=== PATIENT | female | born 1940 | race Caucasian/White ===

== ENCOUNTER → 2016-06-13 | Outpatient (CLI) | payer MEDICARE ==
--- NOTE | 2016-06-13 14:00 | REPMRS ---
Patient History The patient states she has not had a clinical breast exam in over a year. Patient is postmenopausal. Family history of ovarian cancer in mother at age 50 or over and pancreatic cancer in paternal aunt. Digital Woman Screen Mammo: June 13, 2016 - Exam #: [id number] Bilateral CC and MLO view(s) were taken. Technologist: Lakeisha Travis, Technologist Prior study comparison: June 17, 2013, digital woman screen mammo performed at [facility] to [facility]. January 03, 2010, bilateral bilat screen digital mammo performed at [facility] to [facility]. FINDINGS: There are scattered fibroglandular densities. There has been no change in the appearance of the mammogram from the prior studies. There is a mild amount of residual fibroglandular tissue which is fairly symmetric. There is no interval development of dominant mass, architectural distortion, or clustered microcalcification suggestive of malignancy. ASSESSMENT: BI-RADS/ACR category 1 mammogram. Negative. Recommendation Routine screening mammogram in 1 year (for women over age 40). This mammogram was interpreted with the aid of an FDA-approved computer-aided dectection system. Electronically Signed By: Ayaz Rosado MD 06/13/16 [id number]
== END ==
LOC: M WHC 13:11
PROVIDERS: ATTEND Family Medicine
DX: Z12.31 Encounter for screening mammogram for malignant neoplasm of breast (principal)

== ENCOUNTER → 2016-11-12 | Outpatient (REF) | payer MEDICARE ==
[2016-11-12 18:08] LABS: ANION GAP 5 MEQ/L (8-16); BLOOD UREA NITROGEN 18 MG/DL (7-18); CALCIUM LEVEL 9.2 MG/DL (8.8-10.2); CARBON DIOXIDE LEVEL 32 MEQ/L (21-32); CHLORIDE LEVEL 104 MEQ/L (98-107); CREATININE FOR GFR 0.59 MG/DL (0.55-1.02); GLOMERULAR FILTRATION RATE > 60.0 (>39); GLUCOSE, FASTING 87 MG/DL (83-110); POTASSIUM SERUM 4.4 MEQ/L (3.5-5.1); SODIUM LEVEL 141 MEQ/L (136-145)
== END ==
LOC: M SFHCCLAY 13:35
PROVIDERS: ATTEND Family Medicine
DX: I10 Essential (primary) hypertension (principal)
CPT/HCPCS: 80048; G0463

== ENCOUNTER → 2017-03-10 | Outpatient (CLI) | payer MEDICARE ==
--- NOTE | 2017-03-10 16:22 | REP ---
Left wrist two views: There are no comparisons. Mineralization and joint spaces appear normal. I suspect there is soft tissue edema dorsally. This should be confirmed clinically. There are faintly visible calcifications within the area of the triangular cartilage. These could be degenerative or evidence for CPPD. There are tiny calcifications over the dorsum of the carpus of uncertain significance. These could represent a avulsions. Depending on symptomatology consider follow-up MRI or CT.
== END ==
LOC: M CLY 15:08
PROVIDERS: ATTEND Family Medicine
DX: M25.532 Pain in left wrist (principal)

== ENCOUNTER → 2017-12-30 | Outpatient (CLI) | payer MEDICARE | LOC: M WHC 10:31 | DX: Z12.31 Encounter for screening mammogram for malignant neoplasm of breast (principal); Z78.0 Asymptomatic menopausal state; M85.851 Other specified disorders of bone density and structure, right thigh; M85.852 Other specified disorders of bone density and structure, left thigh | CPT/HCPCS: 77067 ==

== ENCOUNTER → 2018-04-05 | Outpatient (REF) | payer MEDICARE | LOC: M SFHCCLAY 15:37 | DX: R30.0 Dysuria (principal) | CPT/HCPCS: 87186 ==

== ENCOUNTER → 2018-05-14 | Outpatient (REF) | payer MEDICARE ==
[2018-05-14 17:23] LABS: ALBUMIN 3.7 GM/DL (3.2-5.2); ALT/SGPT 44 U/L (12-78); BILIRUBIN,TOTAL 0.8 MG/DL (0.2-1.0); BLOOD UREA NITROGEN 13 MG/DL (7-18); CALCIUM LEVEL 8.6 MG/DL (8.8-10.2); CARBON DIOXIDE LEVEL 32 MEQ/L (21-32); CHLORIDE LEVEL 103 MEQ/L (98-107); CHOLESTEROL LEVEL 188 MG/DL (<200); CREATININE FOR GFR 0.59 MG/DL (0.55-1.30); GLOMERULAR FILTRATION RATE > 60.0 (>39); GLUCOSE, FASTING 90 MG/DL (70-100); HDL CHOLESTEROL 78 MG/DL (>40); LDL CHOLESTEROL 96 MG/DL (<100); NON-HDL-C 110 MG/DL; POTASSIUM SERUM 4.2 MEQ/L (3.5-5.1); SODIUM LEVEL 141 MEQ/L (136-145); THYROID STIMULATING HORMONE 0.664 uIU/ML (0.358-3.740); TOTAL PROTEIN 7.3 GM/DL (6.4-8.2); TRIGLYCERIDES LEVEL 72 MG/DL (<150)
== END ==
LOC: M SFHCCLAY 10:02
PROVIDERS: ATTEND Family Medicine
DX: I10 Essential (primary) hypertension (principal)
CPT/HCPCS: 80053; 80061; 84443; G0463

== ENCOUNTER → 2018-05-28 | Outpatient (REF) | payer MEDICARE ==
[2018-05-28 16:27] LABS: TOTAL PROTEIN 7.1 GM/DL (6.4-8.2)
[2018-05-28 16:35] LABS: TOTAL 25(OH) VITAMIN D 22.4 NG/ML (30.0-100.0)
[2018-05-28 16:35] LABS: PTH INTACT 52.2 PG/ML (18.5-88.0)
[2018-06-01 11:13] LABS: ALBUMIN % 55.6 % (55.8-66.1); ALPHA-1-GLOBULIN % 5.9 % (2.9-4.9); ALPHA-2-GLOBULINS % 11.9 % (7.1-11.8); BETA-1-GLOBULINS % 7.6 % (4.7-7.2)
[2018-06-01 11:14] LABS: ALBUMIN 3.95 GM/DL (3.29-5.55); ALPHA-1-GLOBULINS 0.42 GM/DL (0.17-0.41); ALPHA-2-GLOBULINS 0.84 GM/DL (0.42-0.99); BETA-1-GLOBULINS 0.54 GM/DL (0.28-0.60); BETA-2-GLOBULINS 0.46 GM/DL (0.19-0.55); BETA-2-GLOBULINS % 6.5 % (3.2-6.5); GAMMA GLOBULIN % 12.5 % (11.1-18.8); GAMMA GLOBULINS 0.89 GM/DL (0.65-1.58)
== END ==
LOC: M SFHCCLAY 11:09
DX: R74.8 Abnormal levels of other serum enzymes (principal); E83.51 Hypocalcemia
CPT/HCPCS: 84165

== ENCOUNTER → 2018-05-28 | Outpatient (CLI) | payer MEDICARE | LOC: M CLY 11:30 | DX: M16.12 Unilateral primary osteoarthritis, left hip (principal); M25.552 Pain in left hip | CPT/HCPCS: 72190 ==

== ENCOUNTER → 2018-06-23 | Outpatient (CLI) | payer MEDICARE ==
--- NOTE | 2018-06-23 16:35 | REP ---
UNILATERAL RIGHT RIBS, PA CHEST, FIVE VIEWS: HISTORY: Right rib pain. The lungs are clear. The heart is upper limits of normal in size. The pulmonary vasculature is normal in appearance. The bony structure is intact. IMPRESSION: No acute disease.
== END ==
LOC: M CLY 15:37
PROVIDERS: ATTEND Family Medicine
DX: R07.81 Pleurodynia (principal)
CPT/HCPCS: 71101; G0463

== ENCOUNTER → 2018-07-20 | Outpatient (REF) | payer MEDICARE ==
[~2018-07-20] MED LIST: CARV3.12 PO; FURO20TA2 PO; HYDR-3713 PO; MORP-38 PO; MORP30TASA PO; OXYC-517 PO; SERT-138 PO; SPIR-10 PO; VITA400T PO
[2018-07-20 16:39] LABS: BLOOD UREA NITROGEN 14 MG/DL (7-18); CALCIUM LEVEL 9.1 MG/DL (8.8-10.2); CARBON DIOXIDE LEVEL 31 MEQ/L (21-32); CHLORIDE LEVEL 102 MEQ/L (98-107); CREATININE FOR GFR 0.56 MG/DL (0.55-1.30); GLOMERULAR FILTRATION RATE > 60.0 (>39); GLUCOSE, FASTING 95 MG/DL (70-100); HEMATOCRIT 43.4 % (36.0-47.0); HEMOGLOBIN 13.8 g/dl (12.0-15.5); MEAN CORPUSCULAR HEMOGLOBIN 26.8 pg (27.0-33.0); MEAN CORPUSCULAR HGB CONC 31.8 g/dl (32.0-36.5); MEAN CORPUSCULAR VOLUME 84.3 fl (80.0-96.0); PLATELET COUNT, AUTOMATED 394 10^3/uL (150-450); RED BLOOD COUNT 5.15 10^6/uL (4.00-5.40); SODIUM LEVEL 141 MEQ/L (136-145); WHITE BLOOD COUNT 13.9 10^3/uL (4.0-10.0)
== END ==
LOC: M SFHCCLAY 10:25
PROVIDERS: ATTEND Family Medicine
DX: R13.10 Dysphagia, unspecified (principal); R10.33 Periumbilical pain
CPT/HCPCS: 80048; 85027; G0463

== ENCOUNTER → 2018-07-26 | Outpatient (CLI) | payer MEDICARE ==
[~2018-07-26] MED LIST changes: -FURO20TA2 PO; +GASTROGRAFIN SOLUTION 30ML (Q9963) As Ordered ONE; -HYDR-3713 PO; +ISOVUE-370 76% 100ML VIAL (Q9967) As Ordered ONE; -MORP-38 PO; -MORP30TASA PO; -OXYC-517 PO; -SPIR-10 PO
--- NOTE | 2018-07-26 16:23 | REP ---
CT of the abdomen and pelvis with IV and bowel contrast: Comparison is 12/24/2009. The visualized lung napoles are unremarkable except for small focal zones of fibro linear scarring at the inferior tip of the lingula. There are no pleural effusions. There are multiple low density lesions throughout both right and left lobes of the liver compatible with metastases. There is ascites surrounding the liver and spleen extending in the gallbladder fossa, colic there is and pelvis. The gallbladder is unremarkable except for ascites in the gallbladder fossa. The pancreas and spleen are unremarkable. The adrenals, kidneys and abdominal aorta are unremarkable. There is no retroperitoneal adenopathy. There are multiple enlarged mesenteric nodes anteriorly on the left. Pelvis: There is a mass centrally in the pelvis of the uterus measuring up to 4.5 cm, likely related to the cecal tip. There is pelvic ascites. There is no pelvic adenopathy. The uterus and bladder are unremarkable. There is a lytic lesion in the L1 vertebral body compatible with metastasis. Impression: There is a 4.5 cm mass centrally in the pelvis related to the cecal tip. There are multiple low density lesions in the liver compatible with multiple hepatic metastases. There are multiple mesenteric enlarged nodes. There is abdominal and pelvic ascites. There is a lytic lesion in the L1 vertebral body compatible with metastasis. Electronically Signed by Ayaz Oscar MD 07/26/2018 04:15 P
== END ==
LOC: M RAD 14:02
PROVIDERS: ATTEND Family Medicine
DX: R19.00 Intra-abdominal and pelvic swelling, mass and lump, unspecified site (principal); K76.9 Liver disease, unspecified; R10.33 Periumbilical pain; Z80.41 Family history of malignant neoplasm of ovary; Z80.0 Family history of malignant neoplasm of digestive organs

== ENCOUNTER 2018-07-27 16:24 | Inpatient (IN) | payer MEDICARE ==
[~2018-07-27] VITALS: Ht 160 cm; Wt 68.2 kg
[2018-07-27] MEDS ORDERED: NS 1,000 ML IV ONE (17:15)
[2018-07-27] MEDS ORDERED: ONDANSETRON 4 MG ORAL DISINTEGRATING TAB (Q0162 PER 1MG) PO ONE (17:15)
[2018-07-27 17:59] LABS: BASO # 0.2 10^3/uL (0.0-0.2); BASO % 0.8 % (0.0-1.0); EOS # 1.2 10^3/uL (0.0-0.50); EOS % 6.6 % (0.0-3.0); HEMATOCRIT 46.4 % (36.0-47.0); HEMOGLOBIN 15.1 g/dl (12.0-15.5); LYMPH # 1.5 10^3/uL (1.5-4.5); LYMPH % 7.7 % (24.0-44.0); MEAN CORPUSCULAR HEMOGLOBIN 27.6 pg (27.0-33.0); MEAN CORPUSCULAR HGB CONC 32.5 g/dl (32.0-36.5); MEAN CORPUSCULAR VOLUME 84.7 fl (80.0-96.0); NEUTROPHILS # 13.8 10^3/uL (1.8-7.7); NEUTROPHILS % 73.3 % (36.0-66.0); PLATELET COUNT, AUTOMATED 349 10^3/uL (150-450); RED BLOOD COUNT 5.48 10^6/uL (4.00-5.40); WHITE BLOOD COUNT 18.8 10^3/uL (4.0-10.0)
--- NOTE | 2018-07-27 18:25 | REP ---
PA and lateral chest: Comparison is the rib series of 06/23/2018. The lung napoles are clear. The cardiac size is normal. The israel, mediastinum, and skeletal structures are unremarkable. Impression: Negative PA and lateral chest. There is no interval change. Electronically Signed by Ayaz Oscar MD 07/27/2018 06:16 P
[2018-07-27 18:41] LABS: ALBUMIN 2.7 GM/DL (3.2-5.2); ALT/SGPT 76 U/L (12-78); AMYLASE 14 U/L (25-115); BILIRUBIN,TOTAL 5.3 MG/DL (0.2-1.0); BLOOD UREA NITROGEN 15 MG/DL (7-18); CALCIUM LEVEL 8.7 MG/DL (8.8-10.2); CARBON DIOXIDE LEVEL 27 MEQ/L (21-32); CHLORIDE LEVEL 99 MEQ/L (98-107); CPK CREATINE PHOSPHOKINASE 157 U/L (26-192); CREATININE FOR GFR 0.75 MG/DL (0.55-1.30); GLOMERULAR FILTRATION RATE > 60.0 (>39); GLUCOSE, FASTING 88 MG/DL (70-100); LIPASE 45 U/L (73-393); MAGNESIUM LEVEL 2.1 MG/DL (1.8-2.4); MB/CK RELATIVE INDEX 1.27 (< OR =4); POTASSIUM SERUM 5.4 MEQ/L (3.5-5.1); SODIUM LEVEL 135 MEQ/L (136-145); TOTAL PROTEIN 6.8 GM/DL (6.4-8.2); TROPONIN I < 0.02 NG/ML (< 0.10)
[2018-07-27 18:45] LABS: MONO # 2.1 10^3/uL (0.0-0.8)
[2018-07-27 19:59] LABS: INR 1.09; PROTHROMBIN TIME 14.2 SECONDS (12.1-14.4)
[2018-07-27 20:00] LABS: PARTIAL THROMBOPLASTIN TIME 33.8 SECONDS (25.4-37.6)
[2018-07-27] MEDS ORDERED: VITA400T PO (22:20)
[2018-07-27] MEDS ORDERED: CARV3.12 PO (22:20)
[2018-07-27] MEDS ORDERED: SERT-138 PO (22:20)
[2018-07-27 22:43] LABS: APPEARANCE, URINE CLEAR (CLEAR); BACTERIA, URINE AUTO NEGATIVE (NEGATIVE); BILIRUBIN, URINE AUTO 1+ (NEGATIVE); BLOOD, URINE BLOOD NEGATIVE (NEGATIVE); COLOR, URINE AMBER (YELLOW); GLUCOSE, URINE (UA) AUTO NEGATIVE (NEGATIVE); KETONE, URINE AUTO 1+ mg/dL (NEGATIVE); LEUKOCYTE ESTERASE, URINE AUTO NEGATIVE (NEGATIVE); MUCUS, URINE LARGE (NEGATIVE); NITRITE, URINE AUTO NEGATIVE (NEGATIVE); PROTEIN, URINE AUTO 1+ mg/dL (NEGATIVE); RBC, URINE AUTO 2 /HPF (0-3); SPECIFIC GRAVITY URINE AUTO 1.025 (1.002-1.035); SQUAMOUS EPITHELIAL CELL UR AU 1 /HPF (0-6); WBC, URINE AUTO 3 /HPF (0-3)
[2018-07-27] MEDS ORDERED: PERCOCET 5MG/325MG TAB PO PRN (23:00)
[2018-07-27] MEDS ORDERED: METOCLOPRAMIDE 10 MG TAB PO PRN (23:00)
[2018-07-27] MEDS ORDERED: ONDANSETRON 4 MG TAB (S0181) PO PRN (23:00)
[2018-07-27] MEDS ORDERED: ISOVUE-370 76% 100ML VIAL (Q9967) As Ordered ONE (23:17)
--- NOTE | 2018-07-28 00:14 | REPVR ---
EXAM: CT Angiography Chest With Contrast EXAM DATE/TIME: 07/27/2018 11:08 PM CLINICAL HISTORY: 77 years old, female; Pain; Other: HX colon; Patient HX: Colon CA w mets; Additional info: Colon cancer mets TECHNIQUE: Axial computed tomographic angiography images of the chest with intravenous contrast using CT angiography protocol. All CT scans at this facility use at least one of these dose optimization techniques: automated exposure control; mA and/or kV adjustment per patient size (includes targeted exams where dose is matched to clinical indication); or iterative reconstruction. Coronal and sagittal reformatted images were created and reviewed. MIP reconstructed images were created and reviewed. Technologist notes: Facility exam id and description: CT. Angiochest CT angio chest CONTRAST: Contrast Material: 75 ml of iso; Contrast Route: ac COMPARISON: CR Chest, 2 view PA, Lat 07/27/2018 5:41 PM FINDINGS: Pulmonary arteries: No focal pulmonary artery filling defect to suggest acute pulmonary embolus. Aorta: No thoracic aortic aneurysm or dissection. Lungs: Pulmonary vascular/interstitial pattern does not suggest active pulmonary edema. No suspicious lung mass or air space process. No central endobronchial lesion. Pleural space: Minimal dependent bilateral pleural effusions are present. No pneumothorax. Liver: Multiple hepatic lesions consistent with metastases are present. Probable malignant ascites. Lymph nodes: Small, nonspecific mediastinal nodes are present. Bones/joints: Bony structures show no acute fracture or destructive process. IMPRESSION: 1. No evidence of acute pulmonary embolus. 2. Minimal dependent pleural effusions without evidence of mass or pulmonary edema. 3. Extensive hepatic metastases and probable malignant ascites. Unknown source Electronically signed by: Farhan De Leon On 07/28/2018 00:13:54 AM
[2018-07-28] MEDS ORDERED: PATIROMER SORBITEX CALCIUM 8.4 GM POWDER PACKET (VELTASSA) PO ONE (00:15)
--- NOTE | 2018-07-28 00:21 | HPEPDOC ---
[facility] Medical History & Physical Date of Admission Jul 27, 2018 Primary Care Physician: Leon Babcock MD Attending Physician: KERRI MARSHALL MD History and Physical CHIEF COMPLAINT: [place], vomiting HISTORY OF PRESENT ILLNESS: Patient is a 77-year-old female presented for nausea, vomiting, diarrhea. Her story begins approximately last April when patient developed abdominal pain, that has been progressively worsening. . She later developed fatigue, and weakness following [place]. This was then p roceeded by decreased appetite, from a sensation of fullness. She was able to manage her abdominal pain with pain medication, however she was unable to relieve complete remission from her pain. She then stated that she noticed constipation, with occasional red stool, along with dark urination. She denied any weight loss, denied any fever, admitted to abdominal pain, admitted to night sweats. Her PCP ordered CT abdomen on 07/26/2018. , However prior being official read. Patient called PCPs office complaining of ongoing diarrhea, as well as not doing well, with decreased by mouth intake. Patient was advised to come to emergency room for further evaluation. On her initial evaluation, Patient complain of nausea, abdominal pain, and ongoing diarrhea. Her CT scan was available during initial evaluation. Patient was made aware of CT results indicating cecal tumor with metastases to liver and bone. Hospitalist team was called for admission due to new diagnosis of cecal tumor with metastases to bone and liver. Surgery was also consulted. Record review indicated the patient had a colonoscopy performed on Thursday, February 19 in 2015. Impression showed nonbleeding internal hemorrhoid, with diverticulosis in the rectosigmoid colon. One small polyp in the mid ascending colon was removed. Pathology of the polyp showed tubular adenoma dated on 02/21/2016. Prior colonoscopies showed colon polyps at the hepatic flexures, with a biopsy showing 2 fragments of tubular adenoma. Dated on 02/27/2019. Patient stated that she recently had a colonoscopy, approximately 8 months ago. Was unable to find records for this colonoscopy. All of her other colonoscopies performed by Dr. Quezada PAST MEDICAL HISTORY: Menopause Hemorrhoids. Depression GERD Hypertension Osteoporosis. PAST SURGICAL HISTORY: D&C 3 SOCIAL HISTORY: , lives at home with , former smoker, quit in 1983. FAMILY HISTORY: Noncontributory ALLERGIES: Please see below. ROS CONSTITUTIONAL: No fevers, admits to chills, denies weight loss,admits to lethargy HEENT: No rhinorrhea, no itchy eyes, no congesion, CARDIOVASCULAR: No murmurs no palpitations and arrhythmias RESPIRATORY: Not cough, No SOB, no issues to report GASTROINTESTINAL: Positive for nausea, positive vomiting, positive for diarrhea, positive for decreased appetite, positive for red stool HEMATOLOGICAL: No bleeding GENITOURINARY:No Issues HEMATOLOGIC/LYMPHATIC: No swelling PE VITALS: See Below GENERAL APPEARANCE: Alert no acute distress. SKIN: Warm, well perfused. ENT: Palate intact, no JVD LUNGS: Clear to auscultation bilaterally. HEART: Normal S1, S2. No murmurs, no rubs, no gallops ABDOMEN: Soft. No masses. Bowel sounds are present. Right upper quadrant tenderness, no organomegaly TRUNK/SPINE:Straight. EXTREMITIES: Moves all extremities equally. No gross deformities. PULSES: 2+ upper and lower extremity . HOME MEDICATIONS: Please see below. LABORATORY DATA: See below. IMAGING: CT abdomen: The visualized lung napoles are unremarkable except for small focal zones of fibro linear scarring at the inferior tip of the lingula. There are no pleural effusions. There are multiple low density lesions throughout both right and left lobes of the liver compatible with metastases. There is ascites surrounding the liver and spleen extending in the gallbladder fossa, colic there is and pelvis. The gallbladder is unremarkable except for ascites in the gallbladder fossa. The pancreas and spleen are unremarkable. The adrenals, kidneys and abdominal aorta are unremarkable. There is no retroperitoneal adenopathy. There are multiple enlarged mesenteric nodes anteriorly on the left. Pelvis: There is a mass centrally in the pelvis of the uterus measuring up to 4.5 cm, likely related to the cecal tip. There is pelvic ascites. There is no pelvic adenopathy. The uterus and bladder are unremarkable. There is a lytic lesion in the L1 vertebral body compatible with metastasis. Impression: There is a 4.5 cm mass centrally in the pelvis related to the cecal tip. There are multiple low density lesions in the liver compatible with multiple hepatic metastases. There are multiple mesenteric enlarged nodes. There is abdominal and pelvic ascites. There is a lytic lesion in the L1 vertebral body compatible with metastasis. chest xray: Negative PA and lateral chest. There is no interval change. MICROBIOLOGY: Please see below. ASSESSMENT: A 77-year-old female presenting with nausea, vomiting, diarrhea. CT is positive for cecal mass, with metastasis to liver and bone. PLAN: 1. Nausea, vomiting, and diarrhea secondary to cecal mass, secondary to colon cancer, secondary to liver metastases, -CT abdomen and pelvis see above -Zofran for nausea -IV fluids for decreased by mouth intake -CEA pending -CT of chest ordered (staging) -GI panel negative -Surgery consulted, Dr. Ramon will evaluate patient tomorrow morning - Consider GI consult in a.m. - Consider consult to oncology in the a.m. Leukocytosis, 2/2 reactive, unlikely to be infection -Chest x-ray negative, urine negative, -GI panel negative -Blood cultures pending -Elevated C-reactive protein -Continue to monitor Elevated liver function exam secondary to liver metastasis -See above for plan Lactic acidosis secondary to cecal mass, 2/2 vomiting, 2/2 diarrhea -Will continue monitoring Hyperkalemia secondary to nausea and vomiting, -Hospital no longer has Kayexalate, ordered [place] Hyponatremia and nausea and vomiting -Replacement fluid ordered Depression. -Continue home med Hypertension. -Continue home medication Osteoporosis -Continue home medication DVT -Heparin Vital Signs Vital Signs Date Time Temp Pulse Resp B/P (MAP) Pulse Ox O2 Delivery O2 Flow Rate FiO2 07/27/18 20:45 69 16 100/57 (71) 96 Room Air 07/27/18 16:57 97.7 Laboratory Data Labs 24H Laboratory Tests 2 07/27/18 17:35: Immature Granulocyte % (Auto) 0.6, White Blood Count 18.8H, Red Blood Count 5.48H, Hemoglobin 15.1, Hematocrit 46.4, Mean Corpuscular Volume 84.7, Mean Corpuscular Hemoglobin 27.6, Mean Corpuscular Hemoglobin Concent 32.5, Red Cell Distribution Width 14.8H, Platelet Count 349, Neutrophils (%) (Auto) 73.3H, Lymphocytes (%) (Auto) 7.7L, Monocytes (%) (Auto) 11.0H, Eosinophils (%) (Auto) 6.6H, Basophils (%) (Auto) 0.8, Neutrophils # (Auto) 13.8H, Lymphocytes # (Auto) 1.5, Monocytes # (Auto) 2.1H, Eosinophils # (Auto) 1.2H, Basophils # (Auto) 0.2, Nucleated Red Blood Cells % (auto) 0.0, Anion Gap 9, Glomerular Filtration Rate > 60.0, Lactic Acid Level 2.2*H, Blood Urea Nitrogen 15, Creatinine 0.75, Sodium Level 135L, Potassium Level 5.4H, Chloride Level 99, Carbon Dioxide Level 27, Calcium Level 8.7L, Aspartate Amino Transf (AST/SGOT) 150H, Alanine Aminotransferase (ALT/SGPT) 76, Total Creatine Kinase 157, Alkaline Phosphatase 952H, Total Bilirubin 5.3H, Total Protein 6.8, Albumin 2.7L, Magnesium Level 2.1, Creatine Kinase MB 2.0, Creatine Kinase MB Relative Index 1.27, Troponin I < 0.02, C-Reactive Protein, Quantitative 15.40H, GJ-Wzg-[id number]-Type Natriuretic Peptide 210, Albumin/Globulin Ratio 0.66L, Amylase Level 14L, Lipase 45L 07/27/18 19:24: Prothrombin Time 14.2, Prothromb Time International Ratio 1.09, Activated Partial Thromboplast Time 33.8, Ammonia < 10 CBC/BMP Laboratory Tests 07/27/18 17:35 Red Blood Count 5.48 H, Mean Corpuscular Volume 84.7, Mean Corpuscular Hemoglobin 27.6, Mean Corpuscular Hemoglobin Concent 32.5, Red Cell Distribution Width 14.8 H, Neutrophils (%) (Auto) 73.3 H, Lymphocytes (%) (Auto) 7.7 L, Monocytes (%) (Auto) 11.0 H, Eosinophils (%) (Auto) 6.6 H, Basophils (%) (Auto) 0.8, Neutrophils # (Auto) 13.8 H, Lymphocytes # (Auto) 1.5, Monocytes # (Auto) 2.1 H, Eosinophils # (Auto) 1.2 H, Basophils # (Auto) 0.2, Calcium Level 8.7 L, Aspartate Amino Transf (AST/SGOT) 150 H, Alanine Aminotransferase (ALT/SGPT) 76, Total Creatine Kinase 157, Alkaline Phosphatase 952 H, Total Bilirubin 5.3 H, Total Protein 6.8, Albumin 2.7 L Microbiology Microbiology 07/27/18 Blood Culture, Received Pending 07/27/18 Blood Culture, Received Pending 07/27/18 Gastrointestinal Tract Panel (PCR) - Final, Complete Home Medications Scheduled Carvedilol (Carvedilol) 3.125 Mg Tab, 3.125 MG PO BID Cholecalciferol (Vitamin D3) 400 Unit Tab, 400 UNIT PO TID Sertraline HCl (Sertraline HCl) 100 Mg Tab, 100 MG PO DAILY Allergies Coded Allergies: Quinolones (Unverified Allergy, Unknown, UNKNOWN, 09/12/12) Rofecoxib (Unverified Adverse Reaction, Mild, FLUID RETENSION, 07/27/18) GME ATTESTATION GME ATTESTATION My faculty preceptor for this patient encounter was physically present during the encounter and was fully available. All aspects of the patient interview, examination, medical decision making process, and medical care plan development were reviewed and approved by the faculty preceptor. The faculty preceptor is aware and concurs with the plan as stated in the body of this note and will attest to such by his/her cosignature. RM RUFFIN DO Jul 27, 2018 22:11
[2018-07-28 01:00] VITALS: BP 136/97
[2018-07-28] MEDS: NS 1,000 ML IV SCH ×2 (01:30→12:37)
[2018-07-28] MEDS: HEPARIN SOD (PORCINE) 5000 UNITS/ML VIAL SC SCH ×3 (05:37→21:23)
[2018-07-28 06:00] VITALS: BP 116/63
[2018-07-28 06:30] LABS: HEMATOCRIT 36.4 % (36.0-47.0); MEAN CORPUSCULAR HEMOGLOBIN 27.4 pg (27.0-33.0); MEAN CORPUSCULAR VOLUME 83.1 fl (80.0-96.0); PLATELET COUNT, AUTOMATED 291 10^3/uL (150-450); RED BLOOD COUNT 4.38 10^6/uL (4.00-5.40); WHITE BLOOD COUNT 16.3 10^3/uL (4.0-10.0)
--- NOTE | 2018-07-28 06:41 | ECGEPIP ---
Stationary ECG Study [facility] - ED Test Date: 2018-07-27 Pat Name: SONIDO AMANDA Department: Room: - Gender: F Data Management Engineer: willam : 1940 Requested By: LINDA Orellana PA-C Order Number: [id number] Reading MD: Lucho Pruett Measurements Intervals [place] Rate: 68 P: 69 AK: 140 QRS: -63 QRSD: 140 T: -5 QT: 450 QTc: 481 Interpretive Statements SINUS RHYTHM RIGHT BUNDLE BRANCH BLOCK LEFT ANTERIOR FASCICULAR BLOCK NSTTW ABNORMALITIES NO PRIORS FOR COMPARISON Electronically Signed On 07-28-2018 6:40:45 EST by Lucho Pruett
[2018-07-28] MEDS: SERTRALINE 100 MG TAB PO SCH (09:05)
[2018-07-28] MEDS: CARVedilol 3.125 MG TAB PO SCH ×2 (09:05→21:22)
[2018-07-28] MEDS: PANTOPRAZOLE 40MG TAB (PROTONIX) PO SCH (09:05)
[2018-07-28] MEDS: VITAMIN D (CHOLECALCIFEROL) 400 INTERNATIONAL UNITS TAB PO SCH ×3 (09:05→21:22)
[2018-07-28 13:01] LABS: ALBUMIN 2.2 GM/DL (3.2-5.2); ALT/SGPT 56 U/L (12-78); BILIRUBIN,TOTAL 5.5 MG/DL (0.2-1.0); BLOOD UREA NITROGEN 14 MG/DL (7-18); CARBON DIOXIDE LEVEL 28 MEQ/L (21-32); CHLORIDE LEVEL 102 MEQ/L (98-107); CREATININE FOR GFR 0.58 MG/DL (0.55-1.30); GLOMERULAR FILTRATION RATE > 60.0 (>39); GLUCOSE, FASTING 96 MG/DL (70-100); POTASSIUM SERUM 4.2 MEQ/L (3.5-5.1); SODIUM LEVEL 137 MEQ/L (136-145); TOTAL PROTEIN 5.1 GM/DL (6.4-8.2)
[2018-07-28] MEDS: ACETAMINOPHEN TAB 650MG DOSE (2X325MG) PO PRN (13:41)
[2018-07-28 14:00] VITALS: BP 108/55
[2018-07-28] MEDS ORDERED: LIDOCAINE 1% MDV 20ML VIAL As Ordered ONE (16:18)
--- NOTE | 2018-07-28 17:20 | CR ---
DATE OF CONSULTATION: 07/28/2018 REASON FOR CONSULTATION: Possible colon cancer. HISTORY OF PRESENT ILLNESS: The patient is a 77-year-old female who presents with nausea, vomiting, and diarrhea that has been progressively worse for the past 3 days. She has had intermittent nausea, vomiting, and abdominal pains going on since last April. She has been followed outpatient by her primary for that. Had an outpatient CT ordered for July 26; however, due to her persistent diarrhea for the last 3 days, she could not wait for the results, and she came into emergency room last evening for evaluation. In the emergency room (ER), they reviewed her images and found out that she has significant disease throughout the entire abdomen concerning for possible metastatic colon cancer; therefore, she has been admitted basically for this along with her dehydration and intractable nausea and vomiting. She says that these symptoms have been going on since last April. They have just been getting progressively worse. Since May around Chrstimastime, she has been very weak and tired and has had a poor appetite. She denies any weight loss or fevers but was concerned because she has not been eating much, either. She has had a previous colonoscopy in [place] [address] Quezada, a couple polyps removed, but the rest of her exam was essentially normal. No complications from that. No other problems with abdominal pains in the past. PAST MEDICAL HISTORY 1. Menopause. 2. Hemorrhoids. 3. Depression. 4. Gastroesophageal reflux disease (GERD). 5. Hypertension. 6. Osteoporosis. PAST SURGICAL HISTORY: Dilatation and curettage (D and C) times three. SOCIAL HISTORY: Denies drug, alcohol, tobacco abuse. FAMILY HISTORY: Noncontributory. ALLERGIES: QUINOLONES and ROFECOXIB. HOME MEDICATIONS: Please see medication reconciliation. REVIEW OF SYSTEMS: Pertinent positives and negatives as stated in history of present illness (HPI). PHYSICAL EXAMINATION: GENERAL. Alert and oriented times three. No acute distress. VITAL SIGNS: Temperature 96.9, pulse 58, respirations 19, blood pressure 116/63, pulse oximetry 99% on room air. HEENT: Pupils equally round and react to light and accommodation. HEART: S1, S2, regular rate and rhythm. LUNGS: Clear auscultation bilaterally. ABDOMEN: Soft, distended, nontender. Bowel sounds positive. No signs of any ventral hernias. EXTREMITIES: No clubbing, cyanosis, or edema. LABORATORY DATA: White count 16.3, hemoglobin 12, platelets 291. Potassium 4.2, lactic acid 2.2 with a repeat down to 1.3 after some hydration, creatinine 0.58. CEA is pending. IMAGING STUDIES: CT that she had completed on July 26 shows to a 4.5 cm mass in the pelvis related to the cecal tip, multiple low-density lesions in the liver multiple, compatible with multiple hepatic metastases with multiple mesenteric enlarged nodes. There is abdominal and pelvic ascites. There is also a lytic lesion on the L1 vertebral body, compatible with metastasis. ASSESSMENT AND PLAN: Patient is a 77-year-old female with extensive intra-abdominal disease from likely malignant lesion arising from the colon or the appendix. Seeing that she had a normal colonoscopy in 2016, it is possible that this is a lesion arising from the appendix itself. At this point, she is has a soft abdomen that is distended. There is ascites. There are mesenteric lesions in addition to hepatic lesions and colon lesions concerning for metastatic disease. I have consulted oncology. I have attempted to call them and text them and have been unable to speak with them in person, but the consult was placed. I have also spoken with radiology, who is gong to attempt to get a biopsy of one of the omental lesions inside of her abdomen for a tissue diagnosis. Once that is completed, will leave that up to oncology for the next step. She will likely need some neoadjuvant therapy at this point. I do not feel that she is a surgical candidate, especially with the concern for possible carcinomatosis and frozen abdomen. Unless she has issues with bleeding or obstruction, then we will avoid a surgical intervention until neoadjuvant care has been completed for a couple months. Thank you for the consult. I will continue to follow the patient with you.
[2018-07-28 17:45] VITALS: BP 136/67
--- NOTE | 2018-07-28 19:27 | REP ---
LIMITED ABDOMINAL ULTRASOUND: 07/28/2018. Clinical history: An ultrasound for potential pre biopsy scan under ultrasound guidance. Multiple mesenteric masses. Comparison CT abdomen 07/26/2018. Findings: Sonographic evaluation shows some hypoechoic solid appearing lesions but it is difficult to confirm that they are the precise masses seen by CT. Two adjacent 2.5 and 2 cm. They cannot conform to expectations for location or size of the lesion compared to CT [address] will be used as a modality for biopsy. Electronically Signed by Alberto Walter MD 07/28/2018 09:30 P
--- NOTE | 2018-07-28 21:18 | REP ---
CT-GUIDED ABDOMINAL WALL MASS BIOPSY The procedure was performed under the direct supervision of Dr. Walter. Patient has a history of multiple mesenteric nodes anteriorly on the left seen on a previous CT scan dated 07/26/2018. The node measuring 3 x 2.6 cm dense the left anterior abdominal wall was selected for biopsy. The risks and benefits of the procedure were explained to the patient and informed consent was obtained. The abdominal wall mass was localized using CT guidance. The skin was prepped and draped in a sterile fashion. 1% lidocaine was used as a local anesthetic. Using CT guidance a 17/18 gauge coaxial needle biopsy system was inserted and advanced into the mass. Six core biopsy samples were obtained and sent to lab. The patient tolerated the procedure well and there were no immediate complications. After the appropriate amount of monitored convalescence the patient was discharged from the department. Reviewed by ELMER Garcia 07/28/2018 05:24 P Electronically Signed by Alberto Walter MD 07/28/2018 09:09 P
[2018-07-28 22:00] VITALS: BP 135/66
[2018-07-29] MEDS: NS 1,000 ML IV SCH ×2 (01:35→15:08)
[2018-07-29] MEDS ORDERED: PINK BISMUTH SUSP 524MG/30ML ORAL SYRINGE PO PRN (02:00)
--- NOTE | 2018-07-29 02:11 | IPNPDOC ---
Subjective Date Seen The patient was seen on 07/28/18. Subjective Chief Complaint/HPI Patient and her family were anxious to discuss diagnosis and prognosis. Of her GI symptoms, diarrhea is the worst, sometimes limiting what she will eat for fear of future diarrhea. Constitutional: Reports: Malaise, Night Sweats, Weakness, Fatigue; Denies: Chills, Fever, Weight Loss Skin: Denies: Rash Pulmonary: Reports: Dyspnea; Denies: Cough Gastrointestinal: Reports: Nausea, Vomiting, Diarrhea Objective Physical Examination General Exam: Positive: Alert, Cooperative Eye Exam: Positive: Conjunctiva & lids normal ENT Exam: Positive: Atraumatic, Mucous membr. moist/pink Chest Exam: Positive: Clear to auscultation, Normal air movement Heart Exam: Positive: Rate Normal Abdomen Exam: Positive: BS Hypoactive Assessment /Plan Problems (1) Colonic mass Status: Acute Problem Text: Discussed current plan. Biopsies performed today. Will ultimately require PET scan. Prognosis will be more clear once biopsies return and presumed malignancy is staged. Discussed lumbar and hepatic lesions appear to be metastases on CT, but can be better evaluated with PET. (2) Chronic depression Problem Text: continue home medication (3) Hypertension Problem Text: Continue carvedilol, home Lasix on hold. (4) Gastrointestinal distress Problem Text: Added Pepto to current symptomatic control. Encouraged her to continue eating, as nausea and vomiting are not as bothersome for her, and she seems to have diarrhea no matter what she eats or drinks. Plan/VTE VTE Prophylaxis Ordered?: Yes VS, I&O, 24H, Fishbone Vital Signs/I&O Vital Signs Date Time Temp Pulse Resp B/P (MAP) Pulse Ox O2 Delivery O2 Flow Rate FiO2 07/28/18 22:00 98.1 68 19 135/66 (89) 95 07/28/18 00:52 Room Air I&O- Last 24 Hours up to 6 AM 07/29/18 06:00 Intake Total 1620 ml Output Total 1000 ml Balance 620 ml Laboratory Data 24H LABS Laboratory Tests 2 07/28/18 06:06: Nucleated Red Blood Cells % (auto) 0.0, Anion Gap 7L, Glomerular Filtration Rate > 60.0, Lactic Acid Followup at 4 Hours 1.3, Blood Urea Nitrogen 14, Creatinine 0.58, Sodium Level 137, Potassium Level 4.2#, Chloride Level 102, Carbon Dioxide Level 28, Calcium Level 8.0L, Aspartate Amino Transf (AST/SGOT) 102H, Alanine Aminotransferase (ALT/SGPT) 56, Alkaline Phosphatase 692H, Total Bilirubin 5.5H, Total Protein 5.1#L, Albumin 2.2L, Albumin/Globulin Ratio 0.76L CBC/BMP Laboratory Tests 07/28/18 06:06 Red Blood Count 4.38, Mean Corpuscular Volume 83.1, Mean Corpuscular Hemoglobin 27.4, Mean Corpuscular Hemoglobin Concent 33.0, Red Cell Distribution Width 14.6 H, Calcium Level 8.0 L, Aspartate Amino Transf (AST/SGOT) 102 H, Alanine Aminotransferase (ALT/SGPT) 56, Alkaline Phosphatase 692 H, Total Bilirubin 5.5 H, Total Protein 5.1 #L, Albumin 2.2 L Microbiology Microbiology 07/27/18 Blood Culture - Preliminary, Resulted No growth after 24 hours . All specim... 07/27/18 Blood Culture - Preliminary, Resulted No growth after 24 hours . All specim... 07/27/18 Gastrointestinal Tract Panel (PCR) - Final, Complete CALLY MOSS DO Jul 29, 2018 02:11
[2018-07-29] MEDS: HEPARIN SOD (PORCINE) 5000 UNITS/ML VIAL SC SCH ×3 (05:47→20:52)
[2018-07-29 06:00] VITALS: BP 151/72
[2018-07-29 09:15] VITALS: BP 110/68
[2018-07-29] MEDS: SERTRALINE 100 MG TAB PO SCH (10:22)
[2018-07-29] MEDS: PANTOPRAZOLE 40MG TAB (PROTONIX) PO SCH (10:22)
[2018-07-29] MEDS: CARVedilol 3.125 MG TAB PO SCH ×2 (10:23→20:53)
[2018-07-29] MEDS: VITAMIN D (CHOLECALCIFEROL) 400 INTERNATIONAL UNITS TAB PO SCH ×3 (10:23→20:51)
[2018-07-29 14:00] VITALS: BP 116/62
[2018-07-29 18:35] LABS: HEMATOCRIT 39.7 % (36.0-47.0); MEAN CORPUSCULAR HEMOGLOBIN 27.3 pg (27.0-33.0); MEAN CORPUSCULAR HGB CONC 32.7 g/dl (32.0-36.5); MEAN CORPUSCULAR VOLUME 83.2 fl (80.0-96.0); PLATELET COUNT, AUTOMATED 344 10^3/uL (150-450); RED BLOOD COUNT 4.77 10^6/uL (4.00-5.40); WHITE BLOOD COUNT 16.8 10^3/uL (4.0-10.0)
[2018-07-29 18:54] LABS: ALBUMIN 2.1 GM/DL (3.2-5.2); ALT/SGPT 63 U/L (12-78); BILIRUBIN,TOTAL 4.9 MG/DL (0.2-1.0); BLOOD UREA NITROGEN 13 MG/DL (7-18); CALCIUM LEVEL 7.8 MG/DL (8.8-10.2); CARBON DIOXIDE LEVEL 27 MEQ/L (21-32); CHLORIDE LEVEL 108 MEQ/L (98-107); CREATININE FOR GFR 0.52 MG/DL (0.55-1.30); GLOMERULAR FILTRATION RATE > 60.0 (>39); GLUCOSE, FASTING 131 MG/DL (70-100); POTASSIUM SERUM 3.5 MEQ/L (3.5-5.1); SODIUM LEVEL 143 MEQ/L (136-145); TOTAL PROTEIN 5.1 GM/DL (6.4-8.2)
--- NOTE | 2018-07-29 20:26 | CR ---
DATE OF CONSULTATION: 07/29/2018 REASON FOR CONSULTATION: Metastatic colon carcinoma. HISTORY OF PRESENT ILLNESS: This is a very pleasant 77-year-old white female who relates that over the past few months, beginning in the fall of 2017, that she began to notice that she was having an increasing abdominal girth. The clothing that she had been used to wear on a regular basis. She found that her pants were getting tight. She had thought that he was perhaps that she was gaining some weight and did not think too much about it until she was developing progressive nausea and vomiting and abdominal pain that had crescendo over the past 3 days prior to admission. She had been seen by her primary care physician who had ordered an outpatient CT scan. However, due to her diarrhea, the patient was not able to go to the doctor's office for followup and came to the emergency room last evening. In the emergency room, the patient was found to have significant disease throughout her entire liver concerning for possible metastatic colon carcinoma. She was treated for her dehydration and intractable nausea and vomiting. The patient had a known past medical history of having a colonoscopy in February 2016 and she shows had few colon polyps but the rest of her examination was normal. She has had a biopsy and those results are currently pending. The patient's past medical history is 3, para 3, history of hemorrhoids, depression, gastroesophageal reflux disease, hypertension, osteoporosis. Her past surgical history includes a D C x3. SOCIAL HISTORY: She denies any drugs, alcohol, tobacco abuse. She is . Her is supportive. Two of her daughters live locally and her son lives in [place]. Her past family history is noncontributory for any malignancies. Her allergies are to ROFECOXIB, as well as QUINOLONES. Her current medications include carvedilol 3.125 mg by mouth twice a day, vitamin D3 400 units by mouth three times a day and sertraline hydrochlorothiazide 100 mg by mouth daily. On her review of systems, she relates that she had noticed that she had gotten a sallow complexion, nausea, vomiting, diarrhea and no signs of any hematemesis or melanoma associated with this as well. She relates bloating, distension and passage of gas as well. She does not relate any known particular weight loss but has had a decrease in her appetite. She has had no chest pain to no shortness of breath. No hematuria or dysuria. No numbness or tingling of the fingertips and toes and no swelling of the lower extremities. The remainder of her 12-point review of systems is otherwise negative On her physical examination, her temperature is 97.9. Her pulse is 62, respiratory rate is 20, blood pressure (BP) is 116/62 and pulse oximetry is 94. Her HEENT is normocephalic, atraumatic. Her sclerae is muddy but nonicteric. Oropharynx is otherwise clear. Her neck is supple with no adenopathy. Chest has decreased breath sounds at the bases. Cardiovascular: S1-S2 appreciated with no murmurs. Her abdomen is otherwise soft; however, she has some abdominal fullness, tender on deep palpation. Palpable masses are felt. She has marked hepatomegaly. Liver extends over the midline and onto the left costal margin. Her extremities show no cyanosis, no clubbing or any edema. On her laboratories, her white blood cell (WBC) count is 18.8. Her hemoglobin is 15/46. Her red cell distribution width (RDW) is 14.8, platelets of 349, neutrophils of 73, lymphocytes of 7.7. On her chemistries, she has a sodium of 137, potassium 4.2, chloride 102, CO2 28, BUN of 14, creatinine 0.58, fasting glucose of 96, calcium of 8, total bilirubin of 5.5, AST of 102, ALT of 56, alkaline phosphatase of 692, total protein is 5.1, albumin is 2.2 and on the total bilirubin again is 5.5. On the patient's imaging studies, she has a CT scan of the abdomen and pelvis that was reviewed both the films, as well as the report were reviewed with the patient, her , her daughter and her [id number], her daughter, Nahum. The CT scan of the abdomen shows multiple low densities throughout both the right and left lobes of the liver compatible with metastatic disease. There is ascites surrounding the liver and spleen extending into the gallbladder fossa. There gallbladder is unremarkable. The pancreas and spleen are unremarkable. The adrenals, kidneys and abdominal aorta are unremarkable. There is no retroperitoneal adenopathy. There are multiple enlarged mesenteric lymph nodes anteriorly on the left. In the pelvis, there is a mass centrally in the pelvis by the uterus 4.5 cm, likely related to the cecal tip. There is pelvic ascites. There is no pelvic adenopathy. The uterus and bladder are unremarkable. There is a lytic lesion in the L1 vertebral body compatible with metastatic disease. The lungs were reviewed as part of the CT scan of the abdomen and there was no evidence of any disease there as well. The patient had a biopsy done, a CT-guided abdominal wall mass done on 07/28/2018 and six core biopsy specimens were sent to the laboratory. IMPRESSION: Likely metastatic colon carcinoma stage IV disease with massive disease. The bulk of disease in the liver with ascites, as well as with osseous metastasis at L1. PLAN: I have had a discussion with the patient and her . I spent more than 40 minutes in addition to the physical examination with the patient going over her films, her diagnosis, her disease and as well as her stage. The patient has a bilirubin of 5.5, which will make any delivery of chemotherapy requiring dose adjustments to avoid hepatic toxicity. I have also advised the patient that if they would like to seek a second opinion, [facility] or [place] that this certainly is their option and that we would for with whenever center she went to. My concern is that her disease is grossly metastatic with increased alkaline phosphatase increased, bilirubin and a performance status that is currently questionable which is at least a 2/4 on the ECOG scale currently. Plan is to have the patient discharged to home, have discussions with her family; and if she is able and her performance status is adequate, to consider FOLFOX chemotherapy plus or minus Avastin and/or immunotherapy pending her molecular profile. Thank you for your confidence in this consultation.
[2018-07-29] MEDS: ACETAMINOPHEN TAB 650MG DOSE (2X325MG) PO PRN (20:51)
[2018-07-29 22:00] VITALS: BP 126/70
--- NOTE | 2018-07-30 02:44 | IPNPDOC ---
Subjective Date Seen The patient was seen on 07/29/18. Subjective Chief Complaint/HPI She has been feeling better from a GI standpoint, with less diarrhea. She reports that she has been eating and drinking. Discussed plan with patient and family. Discussed patient with oncology, Dr. Galeas. Constitutional: Reports: Malaise, Fatigue; Denies: Chills, Fever Pulmonary: Denies: Dyspnea Cardiovascular: Denies: Chest Pain Gastrointestinal: Reports: Nausea, Vomiting, Abdominal Pain, Diarrhea Psych: Reports: Anxiety Objective Physical Examination General Exam: Positive: Alert, Cooperative Eye Exam: Positive: Conjunctiva & lids normal ENT Exam: Positive: Atraumatic, Mucous membr. moist/pink Chest Exam: Positive: Clear to auscultation, Normal air movement Heart Exam: Positive: Rate Normal Abdomen Exam: Positive: BS Hypoactive, Soft, Tenderness Extremity Exam: Negative: Edema Psych Exam: Positive: Mental status NL Assessment /Plan Problems (1) Colonic mass Status: Acute Problem Text: 07/29 -- she saw Dr. Galeas today, and discussed malignancy. Discussed current plan. Biopsies performed today. Will ultimately require PET scan. Prognosis will be more clear once biopsies return and presumed malignancy is staged. Discussed lumbar and hepatic lesions appear to be metastases on CT, but can be better evaluated with PET. (2) Gastrointestinal distress Problem Text: 07/29 -- eating and drinking much better. Likely discharge home tomorrow if she continues to do this well. Added Pepto to current symptomatic control. Encouraged her to continue eating, as nausea and vomiting are not as bothersome for her, and she seems to have diarrhea no matter what she eats or drinks. (3) Chronic depression Problem Text: continue home medication (4) Hypertension Problem Text: Continue carvedilol, home Lasix on hold. Plan/VTE VTE Prophylaxis Ordered?: Yes VS, I&O, 24H, Fishbone Vital Signs/I&O Vital Signs Date Time Temp Pulse Resp B/P (MAP) Pulse Ox O2 Delivery O2 Flow Rate FiO2 07/29/18 22:00 98.6 68 18 126/70 (88) 94 07/28/18 00:52 Room Air I&O- Last 24 Hours up to 6 AM 07/30/18 06:00 Intake Total 1470 ml Output Total 200 ml Balance 1270 ml Laboratory Data 24H LABS Laboratory Tests 2 07/29/18 18:04: Nucleated Red Blood Cells % (auto) 0.0, Anion Gap 8, Glomerular Filtration Rate > 60.0, Blood Urea Nitrogen 13, Creatinine 0.52L, Sodium Level 143, Potassium Level 3.5, Chloride Level 108H, Carbon Dioxide Level 27, Calcium Level 7.8L, Aspartate Amino Transf (AST/SGOT) 132H, Alanine Aminotransferase (ALT/SGPT) 63, Alkaline Phosphatase 748H, Total Bilirubin 4.9H, Total Protein 5.1L, Albumin 2.1L, Albumin/Globulin Ratio 0.70L CBC/BMP Laboratory Tests 07/29/18 18:04 Red Blood Count 4.77, Mean Corpuscular Volume 83.2, Mean Corpuscular Hemoglobin 27.3, Mean Corpuscular Hemoglobin Concent 32.7, Red Cell Distribution Width 15.4 H, Calcium Level 7.8 L, Aspartate Amino Transf (AST/SGOT) 132 H, Alanine Aminotransferase (ALT/SGPT) 63, Alkaline Phosphatase 748 H, Total Bilirubin 4.9 H, Total Protein 5.1 L, Albumin 2.1 L Microbiology Microbiology 07/27/18 Blood Culture - Preliminary, Resulted No Growth after 48 hours. All Specime... 07/27/18 Blood Culture - Preliminary, Resulted No Growth after 48 hours. All Specime... 07/27/18 Gastrointestinal Tract Panel (PCR) - Final, Complete CALLY MOSS DO Jul 30, 2018 02:44
[2018-07-30 06:00] VITALS: BP 125/64
[2018-07-30] MEDS: HEPARIN SOD (PORCINE) 5000 UNITS/ML VIAL SC SCH (06:15)
[2018-07-30 08:00] VITALS: BP 122/72
[2018-07-30 08:30] VITALS: BP 122/72
[2018-07-30 08:51] LABS: BASO # 0.1 10^3/uL (0.0-0.2); BASO % 0.6 % (0.0-1.0); EOS # 1.6 10^3/uL (0.0-0.50); EOS % 9.8 % (0.0-3.0); HEMATOCRIT 39.6 % (36.0-47.0); LYMPH # 0.9 10^3/uL (1.5-4.5); LYMPH % 5.4 % (24.0-44.0); MEAN CORPUSCULAR HEMOGLOBIN 27.7 pg (27.0-33.0); MEAN CORPUSCULAR HGB CONC 32.8 g/dl (32.0-36.5); MEAN CORPUSCULAR VOLUME 84.3 fl (80.0-96.0); MONO # 1.8 10^3/uL (0.0-0.8); MONO % 11.2 % (0.0-5.0); NEUTROPHILS # 11.8 10^3/uL (1.8-7.7); NEUTROPHILS % 72.4 % (36.0-66.0); PLATELET COUNT, AUTOMATED 299 10^3/uL (150-450); WHITE BLOOD COUNT 16.2 10^3/uL (4.0-10.0)
[2018-07-30 09:17] LABS: ALT/SGPT 70 U/L (12-78); BILIRUBIN,TOTAL 4.7 MG/DL (0.2-1.0); BLOOD UREA NITROGEN 13 MG/DL (7-18); CALCIUM LEVEL 7.8 MG/DL (8.8-10.2); CARBON DIOXIDE LEVEL 30 MEQ/L (21-32); CHLORIDE LEVEL 106 MEQ/L (98-107); CREATININE FOR GFR 0.46 MG/DL (0.55-1.30); GLOMERULAR FILTRATION RATE > 60.0 (>39); GLUCOSE, FASTING 108 MG/DL (70-100); POTASSIUM SERUM 3.9 MEQ/L (3.5-5.1); SODIUM LEVEL 141 MEQ/L (136-145)
[2018-07-30] MEDS: PANTOPRAZOLE 40MG TAB (PROTONIX) PO SCH (09:36)
[2018-07-30] MEDS: VITAMIN D (CHOLECALCIFEROL) 400 INTERNATIONAL UNITS TAB PO SCH (09:36)
[2018-07-30] MEDS: SERTRALINE 100 MG TAB PO SCH (09:36)
[2018-07-30 09:37] VITALS: BP 122/72
[2018-07-30] MEDS: CARVedilol 3.125 MG TAB PO SCH (09:37)
[2018-07-30 11:31] VITALS: BP 122/72
[2018-07-30] MEDS ORDERED: OXYC-517 PO (13:21)
[2018-07-30] MEDS ORDERED: MORP30TASA PO (16:16)
[2018-07-30] MEDS ORDERED: MORP-38 PO (16:16)
[2018-08-10] MEDS ORDERED: SPIR-10 PO (15:42)
[2018-08-10] MEDS ORDERED: FURO20TA2 PO (15:42)
[2018-08-10] MEDS ORDERED: HYDR-3713 PO (15:43)
--- NOTE | 2018-08-17 21:15 | DS.PDOC ---
Discharge Summary General Date of Admission Jul 27, 2018 at 23:27 Date of Discharge Aug 17, 2018 Primary Care Physician: Leon Babcock MD Attending Physician: CALLY MOSS DO Specialist/Consultants Involve: Lakeisha Galeas MD Specialist/Consultants Involve Dr. Ayaz Ramon Discharge Summary PROCEDURES PERFORMED DURING STAY: CT guided biopsy of enlarged mesenteric lymph node ADMITTING DIAGNOSES: 1. Nausea, vomiting, and diarrhea secondary to cecal mass, secondary to colon cancer, secondary to liver metastases 2. Leukocytosis, 2/2 reactive, unlikely to be infection 3. Elevated liver function exam secondary to liver metastasis 4. Lactic acidosis secondary to cecal mass, 2/2 vomiting, 2/2 diarrhea 5. Hyperkalemia secondary to nausea and vomiting, 6. Hyponatremia and nausea and vomiting 7. Depression. 8. Hypertension. 9. Osteoporosis DISCHARGE DIAGNOSES: 1. Cecal tumor, most likely metastatic colon cancer with metastases in liver and lumbar spine 2. Nausea, vomiting, and diarrhea secondary to above GI malignancy 3. Leukocytosis, 2/2 reactive, unlikely to be infection 4. Jaundice and elevated AST and alkaline phosphatase, secondary to liver metastasis 5. Lactic acidosis secondary to cecal mass, 2/2 vomiting, 2/2 diarrhea 6. Hyperkalemia secondary to nausea and vomiting, 7. Hyponatremia and nausea and vomiting 8. Depression. 9. Hypertension. 10. Osteoporosis COMPLICATIONS/CHIEF COMPLAINT: Metastatic Cancer. HISTORY OF PRESENT ILLNESS: Patient is a 77-year-old female presented for nausea, vomiting, diarrhea. Her story begins approximately last April when patient developed abdominal pain that has been progressively worsening. As time passed she developed fatigue, weakness, and sensation of fullness leading to decreased appetite. She was able to manage her abdominal pain with pain medication, however she was unable to relieve complete remission from her pain. She then stated that she noticed constipation, with occasional red stool, along with dark urination. She denied any weight loss, denied any fever, admitted to abdominal pain, admitted to night sweats. Her PCP ordered CT abdomen, which was performed on 07/26/2018. However prior being official read, the patient called her PCPs office complaining of ongoing diarrhea, decreased PO intake, and not doing well. She was advised to come to emergency room for further evaluation. On her initial evaluation, Patient complain of nausea, abdominal pain, and ongoing diarrhea. Her CT scan was available during initial evaluation. Patient was made aware of CT results indicating cecal tumor with metastases to liver and bone. Hospitalist team was called for admission due to new diagnosis of cecal tumor with metastases to bone and liver. Surgery was also consulted. HOSPITAL COURSE: Patient was admitted to the hospital and underwent CT guided biopsy of enlarged lymph node; pathology results not available at time of discharge. Her GI symptoms improved with symptom management, including Protonix, Pepto Bismol, and Zofran; she was thus able to tolerate PO intake and her electrolyte abnormalities normalized. She remained in contact with her primary care provider during hospitalization. She was seen by Dr. Galeas (oncology), and upon her discharge intended to follow up with [facility] 08/18, as well as local oncology. Her pain was controlled without narcotics during her admission, but she was provided with prn oxycodone upon discharge, in case her discomfort worsened prior to hospital followup appointment. As she was eating, drinking, stooling, and had stable labwork, she was discharged home 07/30, with plan to continue workup as an outpatient. She had a supportive family at the bedside. DISCHARGE MEDICATIONS: Please see below. ALLERGIES: Please see below. PHYSICAL EXAMINATION ON DISCHARGE: VITAL SIGNS: Please see below. GENERAL: pleasant, somewhat nervous HEENT: jaundiced sclera, mucous membranes moist NECK: supple CARDIOVASCULAR EXAMINATION: regular rate and rhythm RESPIRATORY EXAMINATION: clear to auscultation bilat ABDOMINAL EXAMINATION: bowel sounds positive, mild diffuse tenderness, abdomen is full and containts ascites EXTREMITIES: trace edema bilat LE SKIN: visibly jaundiced LABORATORY DATA: Please see below. IMAGING: Chest X ray 07/27 read as no acute findings. Chest CT angio 07/27 showed 1. No evidence of acute pulmonary embolus. 2. Minimal dependent pleural effusions without evidence of mass or pulmonary edema. 3. Extensive hepatic metastases and probable malignant ascites. *Note that the CT abdomen and pelvis which showed this malignancy was performed as an outpatient the day before admission. PROGNOSIS: guarded ACTIVITY: [As tolerated]. DIET: regular DISCHARGE PLAN: home, with cancer workup (including PET scan) to be further pursued as an outpatient DISPOSITION: 01 Home, Self-Care. DISCHARGE INSTRUCTIONS: Take all medications as prescribed. Seek urgent medical attention for inability to eat or drink. Contact the office with any problems, complaints, or concerns. Check with oncology at [facility] a few days before your appointment to be sure that they have your records. ITEMS TO FOLLOWUP ON ON OUTPATIENT: GI malignancy DISCHARGE CONDITION: [Stable]. TIME SPENT ON DISCHARGE: Greater than 30 minutes. Discharge Medications Scheduled Acetaminophen/Hydrocodone (Hydrocodone/Acetaminophen 5-325 mg) 1 Tab Tab, 325 MG PO Q6H, (Reported) Carvedilol (Carvedilol) 3.125 Mg Tab, 3.125 MG PO BID, (Reported) Cholecalciferol (Vitamin D3) 400 Unit Tab, 400 UNIT PO TID, (Reported) Furosemide (Furosemide) 20 Mg Tab, 20 MG PO DAILY, (Reported) Sertraline HCl (Sertraline HCl) 100 Mg Tab, 100 MG PO DAILY, (Reported) Spironolactone (Spironolactone) 25 Mg Tab, 25 MG PO DAILY, (Reported) Scheduled PRN Oxycodone HCl (Oxycodone HCl) 5 Mg Tab, 5 MG PO TIDP PRN for pain Allergies Coded Allergies: Quinolones (Unverified Allergy, Unknown, UNKNOWN, 09/12/12) Rofecoxib (Unverified Adverse Reaction, Mild, FLUID RETENSION, 07/27/18) CALLY MOSS DO Aug 17, 2018 21:15
== END 2018-07-30 14:41 | disposition home or self-care (01) | DRG 357 ==
LOC: M ED 16:24 → M ED INP 23:27 → M MS5PR 07-28 01:00
PROVIDERS: ADMIT Hospitalist; ATTEND Family Medicine
PROC: 0WBF3ZX Excision of Abdominal Wall, Percutaneous Approach, Diagnostic (ICD-10-PCS; principal; 2018-07-28)
DX: C18.0 Malignant neoplasm of cecum (principal); C78.7 Secondary malignant neoplasm of liver and intrahepatic bile duct; C79.51 Secondary malignant neoplasm of bone; E87.2 Acidosis; E87.1 Hypo-osmolality and hyponatremia; F32.9 Major depressive disorder, single episode, unspecified; K21.9 Gastro-esophageal reflux disease without esophagitis; I10 Essential (primary) hypertension; E87.5 Hyperkalemia; M81.0 Age-related osteoporosis without current pathological fracture; Z79.899 Other long term (current) drug therapy; Z88.1 Allergy status to other antibiotic agents; Z88.8 Allergy status to other drugs, medicaments and biological substances

== ENCOUNTER → 2018-08-10 | Outpatient (REF) | payer MEDICARE ==
[~2018-08-10] MED LIST changes: +FURO20TA2 PO; -GASTROGRAFIN SOLUTION 30ML (Q9963) As Ordered ONE; +HYDR-3713 PO; -ISOVUE-370 76% 100ML VIAL (Q9967) As Ordered ONE; +MORP-38 PO; +MORP30TASA PO; +OXYC-517 PO; +SPIR-10 PO
[2018-08-10 12:21] LABS: INR 1.28; PROTHROMBIN TIME 16.2 SECONDS (12.1-14.4)
[2018-08-10 12:22] LABS: PARTIAL THROMBOPLASTIN TIME 35.4 SECONDS (25.4-37.6)
== END ==
LOC: M SFHCCLAY 09:39
PROVIDERS: ATTEND Family Medicine
DX: C18.9 Malignant neoplasm of colon, unspecified (principal); Z79.01 Long term (current) use of anticoagulants